=== PATIENT | female | born 1990 | race Caucasian/White ===

== ENCOUNTER → 2018-07-31 | Outpatient (CLI) | payer OTHER ==
[~2018-07-31] MED LIST: CIPRO500 MG PO; CIPROFLOXACIN500 M3 PO; HYDROCODONE-AP1 EAC6 PO; NOHOMEMEDICATIONS; NORCO 5-325 TA1 EACH PO; PHENERGAN 25 MG25 M1 PO; ZOFRAN 4 MG ORAL4 M1 DIS
== END ==
LOC: M.RAD 17:59
DX: M79.642 Pain in left hand (principal)

== ENCOUNTER → 2018-09-12 | Outpatient (CLI) | payer OTHER ==
[2018-09-12 08:24] LABS: ABSOLUTE EOSINOPHILS 0.4 thou/uL (0.0-0.7); ABSOLUTE LYMPHOCYTES 2.2 thou/uL (0.8-5.3); ABSOLUTE MONOCYTES 0.5 thou/uL (0.0-1.2); ABSOLUTE NEUTROPHILS 5.6 thou/uL (1.6-8.1); BASOPHILS 0.2 %; EOSINOPHILS 5.1 %; HEMATOCRIT 41.8 % (37.0-47.0); LYMPHOCYTES 24.9 %; MCH 29.2 pg (26.0-34.0); MCHC 33.5 g/dL (28.0-37.0); MCV 87.1 fL (80.0-100.0); MONOCYTES 5.4 %; MPV 8.9 fl. (7.2-11.1); NUCLEATED RBCS 0 /100WBC; PLATELET COUNT* 229 thou/uL (150-400); POLYS 64.4 %; RDW-CV 13.7 % (10.5-14.5); WBC 8.7 thou/uL (4.0-11.0)
[2018-09-12 08:56] LABS: ALBUMIN 3.8 g/dL (3.4-5.0); ALKALINE PHOSPHATASE 68 U/L (46-116); ANION GAP 5 mmol/L (7-16); BUN 10 mg/dL (7-18); CALCIUM 8.9 mg/dL (8.5-10.1); CHLORIDE 103 mmol/L (98-107); CO2 29 mmol/L (21-32); CREATININE 0.9 mg/dL (0.6-1.3); GLUCOSE 97 mg/dL (70-99); SGOT 13 U/L (15-37); SGPT 14 U/L (30-65); SODIUM 137 mmol/L (136-145); TOTAL BILIRUBIN 0.6 mg/dL (<0.1-1.0); TOTAL PROTEIN 8.1 g/dL (6.4-8.2)
[2018-09-12 17:10] LABS: CHOLESTEROL 123 mg/dL (<200); HDL CHOLESTEROL 57 mg/dL (>40); LDL CHOLESTEROL 60 mg/dL (<100); SERUM ASSESSMENT Clear; TC:HDL 2.2 Ratio (Not establshd); TRIGLYCERIDE 34 mg/dL (<150); VLDL 7 mg/dL (<40)
[2018-09-12 21:07] LABS: GLYCOHEMOGLOBIN (HGB A1C) 5.2 % (4.8-5.6)
== END ==
LOC: M.LAB 07:51
PROVIDERS: Family Medicine
DX: E66.9 Obesity, unspecified (principal); R53.83 Other fatigue

== ENCOUNTER → 2018-11-06 | Outpatient (CLI) | payer OTHER ==
[2018-11-06 15:55] LABS: ABSOLUTE EOSINOPHILS 0.4 thou/uL (0.0-0.7); ABSOLUTE LYMPHOCYTES 1.9 thou/uL (0.8-5.3); ABSOLUTE MONOCYTES 0.4 thou/uL (0.0-1.2); ABSOLUTE NEUTROPHILS 5.9 thou/uL (1.6-8.1); BASOPHILS 0.2 %; EOSINOPHILS 4.3 %; HEMOGLOBIN 14.1 gm/dL (12.0-15.0); LYMPHOCYTES 21.7 %; MCH 29.1 pg (26.0-34.0); MCHC 33.6 g/dL (28.0-37.0); MCV 86.6 fL (80.0-100.0); MONOCYTES 4.4 %; MPV 8.3 fl. (7.2-11.1); NUCLEATED RBCS 0 /100WBC; PLATELET COUNT* 215 thou/uL (150-400); POLYS 69.4 %; RBC 4.85 mil/uL (4.20-5.00); RDW-CV 13.7 % (10.5-14.5); WBC 8.5 thou/uL (4.0-11.0)
[2018-11-06 16:00] LABS: CALCIUM 9.1 mg/dL (8.5-10.1); CREATININE 0.7 mg/dL (0.6-1.3); POTASSIUM 3.7 mmol/L (3.5-5.1)
[2018-11-06 16:05] LABS: TOTAL BILIRUBIN 0.8 mg/dL (<0.1-1.0)
== END ==
LOC: M.CT 13:00 → M.LAB 13:15 → M.CT 13:15
PROVIDERS: Internal Medicine Gastroenterology
DX: J34.2 Deviated nasal septum (principal); G89.28 Other chronic postprocedural pain

== ENCOUNTER 2018-12-03 22:01 | Emergency (ER) | payer OTHER ==
[~2018-12-03] VITALS: Ht 160 cm; Wt 88.9 kg
[2018-12-03] MEDS ORDERED: ADIPEX-P37.5 MG (22:16)
[2018-12-03] MEDS ORDERED: LEXAPRO20 MG (22:16)
[2018-12-03 22:32] LABS: ABSOLUTE EOSINOPHILS 0.3 thou/uL (0.0-0.7); ABSOLUTE LYMPHOCYTES 0.8 thou/uL (0.8-5.3); ABSOLUTE MONOCYTES 0.3 thou/uL (0.0-1.2); ABSOLUTE NEUTROPHILS 6.5 thou/uL (1.6-8.1); BASOPHILS 0.2 %; EOSINOPHILS 4.2 %; HEMATOCRIT 42.1 % (37.0-47.0); HEMOGLOBIN 14.2 gm/dL (12.0-15.0); LYMPHOCYTES 10.5 %; MCHC 33.7 g/dL (28.0-37.0); MONOCYTES 3.9 %; MPV 8.7 fl. (7.2-11.1); NUCLEATED RBCS 0 /100WBC; PLATELET COUNT* 157 thou/uL (150-400); POLYS 81.2 %; RDW-CV 13.4 % (10.5-14.5); URINE BILIRUBIN NEGATIVE (Negative); URINE BLOOD TRACE (Negative); URINE CLARITY SL CLOUDY; URINE COLOR YELLOW; URINE GLUCOSE-RANDOM NEGATIVE (Negative); URINE KETONES NEGATIVE (Negative); URINE NITRITE-REFLEX NEGATIVE (Negative); URINE PROTEIN NEGATIVE (Negative)
[2018-12-03 22:34] LABS: URINE LEUKOCYTES-REFLEX 3+ (Negative)
[2018-12-03 22:41] LABS: ALBUMIN 3.8 g/dL (3.4-5.0); CALCIUM 8.6 mg/dL (8.5-10.1); CREATININE 0.7 mg/dL (0.6-1.3); POTASSIUM 3.8 mmol/L (3.5-5.1); TOTAL PROTEIN 7.7 g/dL (6.4-8.2)
[2018-12-03 22:56] LABS: CASTS None Seen /LPF (None Seen); SQUAMOUS >10 Many /LPF (0-3)
[2018-12-03 22:57] LABS: URINE WBC-REFLEX >25 Many /HPF (0-5)
[2018-12-03 22:58] LABS: BACTERIA-REFLEX >30 Many /HPF (None Seen); CRYSTALS None Seen /LPF (None Seen); URINE RBC 0-2 Rare /HPF (0-2)
[2018-12-03] MEDS ORDERED: CIPROFLOXACIN500 M1 PO (23:56)
[2018-12-03] MEDS ORDERED: NORCO 5-325 TA1 EACH PO (23:56)
[2018-12-04 00:03] VITALS: BP 110/74
--- NOTE | 2018-12-04 18:46 | EKG ---
[place] [address] ELECTROCARDIOGRAM REPORT Name: JEAN CARLOS AUSTIN Room: [facility]#: [id number] Admission: 12/03/18 Attend Phys: Discharge: 12/04/18 Date of : 89 Report #: [id number] THIS REPORT FOR: //name// [facility] ED Test Date: 2018-12-03 Test Time: 22:20:56 Pat Name: JEAN CARLOS AUSTIN Department: Room: Gender: F [employer]: Tucker LAZO : 1990 Requested By: Mauro Guevara Order Number: [id number] MD: Kyree Shah Measurements Intervals [place] Rate: 99 P: 40 SC: 142 QRS: 32 QRSD: 84 T: 36 QT: 326 QTc: 419 Interpretive Statements Sinus rhythm Low voltage, precordial leads No previous ECG available for comparison Electronically Signed On 12-04-2018 18:46:02 VIDEOGAME TESTER by Kyree Shah [email or web address] <ELECTRONICALLY SIGNED> By: Kyree Shah MD, [facility] 12/04/18 1846 2220 2220 Kyree Shah MD, FAC /EPI
== END 2018-12-04 00:03 | disposition home or self-care (01) ==
LOC: M.ERS 22:01
PROVIDERS: Family Medicine
DX: N39.0 Urinary tract infection, site not specified (principal); R11.2 Nausea with vomiting, unspecified; Z90.49 Acquired absence of other specified parts of digestive tract

== ENCOUNTER 2019-01-08 09:44 | Emergency (ER) | payer OTHER ==
[~2019-01-08] VITALS: Ht 157.5 cm; Wt 87.5 kg
[~2019-01-08 09:44] MED LIST changes: +ADIPEX-P37.5 MG; +CIPROFLOXACIN500 M1 PO; +LEXAPRO20 MG
[2019-01-08] MEDS ORDERED: PERCOCET PO (09:53)
[2019-01-08 10:27] LABS: ABSOLUTE EOSINOPHILS 0.3 thou/uL (0.0-0.7); ABSOLUTE LYMPHOCYTES 1.4 thou/uL (0.8-5.3); ABSOLUTE MONOCYTES 0.6 thou/uL (0.0-1.2); ABSOLUTE NEUTROPHILS 7.6 thou/uL (1.6-8.1); BASOPHILS 0.3 %; EOSINOPHILS 3.1 %; LYMPHOCYTES 14.1 %; MCH 29.5 pg (26.0-34.0); MCHC 34.2 g/dL (28.0-37.0); MCV 86.3 fL (80.0-100.0); MONOCYTES 5.8 %; MPV 8.6 fl. (7.2-11.1); NUCLEATED RBCS 0 /100WBC; PLATELET COUNT* 216 thou/uL (150-400); POLYS 76.7 %; RBC 4.76 mil/uL (4.20-5.00); RDW-CV 13.3 % (10.5-14.5); WBC 9.9 thou/uL (4.0-11.0)
[2019-01-08 10:30] LABS: CALCIUM 9.2 mg/dL (8.5-10.1); CREATININE 0.7 mg/dL (0.6-1.3); POTASSIUM 3.6 mmol/L (3.5-5.1)
[2019-01-08 10:35] LABS: ALBUMIN 3.5 g/dL (3.4-5.0); TOTAL BILIRUBIN 0.6 mg/dL (<0.1-1.0); TOTAL PROTEIN 8.1 g/dL (6.4-8.2)
[2019-01-08 11:16] VITALS: BP 92/60
== END 2019-01-08 11:18 | disposition home or self-care (01) ==
LOC: M.ERS 09:44
PROVIDERS: Family Medicine
DX: G89.18 Other acute postprocedural pain (principal); R07.0 Pain in throat; E86.0 Dehydration; Z90.49 Acquired absence of other specified parts of digestive tract; Z86.73 Personal history of transient ischemic attack (TIA), and cerebral infarction without residual deficits; Z90.89 Acquired absence of other organs

== ENCOUNTER 2020-09-12 11:00 | Emergency (ER) | payer OTHER ==
[~2020-09-12] VITALS: Ht 160 cm; Wt 99.8 kg
[~2020-09-12 11:00] MED LIST changes: +PERCOCET PO
[2020-09-12] MEDS ORDERED: MIRENA1 EACH IMPLANT (11:09)
[2020-09-12] MEDS ORDERED: NORCO 5-325 TA1 EAC2 PO (11:41)
[2020-09-12 11:46] VITALS: BP 126/72
== END 2020-09-12 11:46 | disposition home or self-care (01) ==
LOC: M.ERS 11:00
DX: S93.691A Other sprain of right foot, initial encounter (principal); Z90.49 Acquired absence of other specified parts of digestive tract; X50.9XXA Other and unspecified overexertion or strenuous movements or postures, initial encounter; Y93.89 Activity, other specified; Y92.834 Zoological garden (Zoo) as the place of occurrence of the external cause; Y99.8 Other external cause status